=== PATIENT | female | born 1960 | race Caucasian/White ===

== ENCOUNTER 2022-01-31 21:41 | Emergency (ER) | payer BC ==
[2022-01-31 21:56] VITALS: BMI 25.7
[2022-01-31] MEDS ORDERED: SODIUM CHLORIDE 0.9% 500 ML INFUS.BAG IV ONE (22:48)
[2022-01-31] MEDS ORDERED: ACETAMINOPHEN 1000 MG/100 ML BAG IVPB ONE (22:48)
[2022-01-31] MEDS ORDERED: ACETAMINOPHEN INJECTION 100 ML IVPB ONE (23:08)
[2022-01-31 23:51] LABS: BASO % 0.2 % (0-2.0); EOS % 0.5 % (0-4.5); LYMPH % 19.1 % (8-40); MCH 30.6 pg (25.7-33.7); MCHC 33.3 g/dl (32.0-36.0); MEAN CELL VOLUME 91.9 fl (80-96); MONO % 5.4 % (3.8-10.2); NEUT % 74.8 % (42.8-82.8); PLATELET COUNT 239 10^3/uL (134-434); RBC 4.56 M/mm3 (3.60-5.2); RDW 12.4 % (11.6-15.6)
[2022-02-01 00:20] LABS: ALBUMIN 3.8 g/dl (3.4-5.0); BLOOD UREA NITROGEN 12.2 mg/dL (7-18); CALCIUM 9.4 mg/dL (8.5-10.1)
[2022-02-01 00:22] LABS: CREATININE 0.7 mg/dL (0.55-1.3)
[2022-02-01 00:24] LABS: BILIRUBIN,TOTAL 0.2 mg/dL (0.2-1); TOT PROT 7.5 g/dl (6.4-8.2)
[2022-02-01 01:27] LABS: PH,URINE 6.5 (5.0-8.0); URINE APPEARANCE CLEAR; URINE BILIRUBIN NEGATIVE (NEGATIVE); URINE COLOR YELLOW; URINE GLUCOSE (UA) NEGATIVE (NEGATIVE); URINE KETONE NEGATIVE (NEGATIVE); URINE LEUK ESTERASE NEGATIVE (NEGATIVE); URINE NITRITE NEGATIVE (NEGATIVE); URINE PROTEIN NEGATIVE (NEGATIVE); URINE UROBILINOGEN 0.2 mg/dL (0.2-1.0)
[2022-02-01 02:29] VITALS: BP 124/73; PULSE 60; RESP 19; TEMP 98.5
== END 2022-02-01 04:16 | disposition home or self-care (01) ==
LOC: JER 21:41
DX: K59.00 Constipation, unspecified (principal)
CPT/HCPCS: 36415; 74177-TC; 80053; 81003; 85025; 87086; 99281-25; Q9967